=== PATIENT | female | born 1975 | race Two or more races ===

== ENCOUNTER 2020-01-12 11:57 | Emergency (ER) | payer OTHER ==
[~2020-01-12] VITALS: Ht 160 cm; Wt 56.7 kg
[~2020-01-12 11:57] MED LIST: ANTIDEPRESIVOS; FIORICET 50-321 EACH PO; FIORICET PO; LEVAQUIN500 MG PO; LEVSIN/SL0.125 MG SL; PRILOSEC40 MG PO; PROTONIX20 MG PO; PROTONIX40 MG PO; QUESTRAN LIGHT210 GM; QUESTRAN POWDE378 GM; URIN D.S. TABLE1 TAB PO; VOLTAREM 50 MG PO; XANAX0.25 MG PO; ZANTAC300 MG PO; ZOLOFT50 MG
[2020-01-12] MEDS ORDERED: QUESTRAN PACKET4 GM (12:25)
== END 2020-01-12 17:11 | disposition home or self-care (01) ==
LOC: ER 11:57
DX: T19.2XXA Foreign body in vulva and vagina, initial encounter (principal); W45.8XXA Other foreign body or object entering through skin, initial encounter; Y93.89 Activity, other specified; Y92.89 Other specified places as the place of occurrence of the external cause; Y99.8 Other external cause status

== ENCOUNTER 2020-07-01 11:24 | Emergency (ER) | payer OTHER ==
[~2020-07-01] VITALS: Ht 160 cm; Wt 56.7 kg
[~2020-07-01 11:24] MED LIST changes: +QUESTRAN PACKET4 GM
[2020-07-01] MEDS ORDERED: KETO10TA2 PO (14:51)
[2020-07-01] MEDS ORDERED: NORFLEX100MG PO (14:51)
== END 2020-07-01 17:00 | disposition home or self-care (01) ==
LOC: ER 11:24
DX: M54.2 Cervicalgia (principal); M54.5 Low back pain

== ENCOUNTER → 2020-10-07 15:15 | Outpatient (CLI) | payer OTHER ==
[~2020-10-07 15:15] MED LIST changes: +KETO10TA2 PO; +NORFLEX100MG PO
== END | disposition home or self-care (01) ==
LOC: PPH VACUNA 15:15
DX: Z23 Encounter for immunization (principal)

== ENCOUNTER 2023-05-16 10:08 | Emergency (ER) | payer OTHER ==
[~2023-05-16] VITALS: Ht 160 cm; Wt 55.3 kg
== END 2023-05-16 12:05 | disposition home or self-care (01) ==
LOC: ER 10:08
DX: J06.9 Acute upper respiratory infection, unspecified (principal)